=== PATIENT | male | born 1965 | race Caucasian/White ===

== ENCOUNTER 2019-03-15 21:14 | Emergency (ER) | payer OTHER, SELFPAY ==
[2019-03-15 21:16] VITALS: BP 140/84; PULSE 78; RESP 18; TEMP 36.7; O2SAT 98; BMI 24.4
[2019-03-15] MEDS: Diphth,Pertuss(Acell),Tet Vac 0.5 ML Vial IM (22:06)
--- NOTE | 2019-03-15 22:40 | DCINST.ED_ITS ---
ED Disposition - Plan for ED Patient: Instructions: HEAD INJURY, No Wake-Up (Adult), LACERATION, Scalp Referrals: Jose Juan Bañuelos MD [Primary Care Provider] - [facility] [GROUP OF PHYSICIANS] -
--- NOTE | 2019-03-15 22:42 | ED.DCSUM_ITS ---
- ER Visit Summary Date of Service: 03/15/19 Chief Complaint: Scalp laceration History of Present Illness: The patient is a 53 M presenting with scalp laceration. Patient states he was at work. He was ducking under a fuse box and hit the back of his head. He sustained a laceration to the superior posterior aspect of his scalp. Last tetanus is unknown. He did not lose consciousness. No amnesia to the event. No vomiting. He is not on anticoagulants. No other injuries. Physical Examination: Vitals are stable. Patient is afebrile. Alert no acute distress. HEENT exam 3 cm laceration to the superior posterior scalp Neck is nontender. Lungs are clear and equal bilaterally. Heart is regular rate and rhythm. Abdomen is soft nontender nondistended. Extremities are unremarkable. Skin is warm and dry. No focal neurologic deficit. Remainder of exam is unremarkable. Emergency Department Course and Treatment: Patient was given tetanus IM. Laceration was irrigated. Anesthetized with lidocaine. 5 bola were placed. Patient tolerated well. Advised to follow-up with [facility] care. Advised return to ED for worsening complaints. Disposition: Discharge home Impression: Scalp laceration, laceration repair This note was generated with [employer] dictation software. It may contain incorrect words, spelling, and punctuation that were not noted in review of the chart prior to signing ED Disposition - Plan for ED Patient: Instructions: HEAD INJURY, No Wake-Up (Adult), LACERATION, Scalp Referrals: [facility] [GROUP OF PHYSICIANS] - Jose Juan Bañuelos MD [Primary Care Provider] -
[2019-03-15 22:56] VITALS: PULSE 70; RESP 16; O2SAT 88
[2019-03-15] MEDS: Ibuprofen 600 MG Tablet PO (22:56)
== END 2019-03-15 22:57 | disposition home or self-care (01) ==
LOC: ED 21:50
PROVIDERS: Emergency Provider Emergency Medicine; Family Provider Internal Medicine; PCP Internal Medicine
DX: S01.01XA Laceration without foreign body of scalp, initial encounter (principal); W22.09XA Striking against other stationary object, initial encounter; Y93.9 Activity, unspecified; Y92.9 Unspecified place or not applicable; Y99.0 Civilian activity done for income or pay
CPT/HCPCS: 12002; 90471; 90715; 99285